=== PATIENT | male | born 1935 | race Hispanic/Latino ===

== ENCOUNTER 2016-06-10 13:32 | Emergency (ER) | payer MEDICARE ==
[2016-06-10 14:07] VITALS: BP 147/80; RESP 18; TEMP 97.2
--- NOTE | 2016-06-10 15:01 | ED PDOC ---
HPI: Back Time Seen by Provider: 06/10/16 14:53 Chief Complaint (Nursing): Back Pain Chief Complaint (Provider): Left-Sided Back Pain History Per: Patient History/Exam Limitations: no limitations Onset/Duration Of Symptoms: Days (x3) Current Symptoms Are (Timing): Still Present Quality Of Discomfort: Unable To Describe Severity: Moderate Previous Symptoms: None Associated Symptoms: None Additional Complaint(s): Domo Ba is an 80 year old male, with no pertinent pasta medical history, who presents to the ED on 06/10/16 for the evaluation of moderate, left -sided mid-thoracic back pain that he has experienced x3 days s/p mechanical fall. Patient states that he had been cleaning a banister when he had lost his balance and fallen backwards down a set of 2 steps, striking the affected area against a radiator. Denies head trauma or loss of consciousness as well as shortness of breath. Has medicated with Tylenol and Advil without relief, last dose of the latter being as of 3 hours prior to arrival. PMD: Berto Del Valle Past Medical History Reviewed: Historical Data, Nursing Documentation, Vital Signs Vital Signs: Last Vital Signs Temp 97.2 F L 06/10/16 14:04 Pulse 95 H 06/10/16 14:04 Resp 18 06/10/16 14:04 BP 147/80 06/10/16 14:04 Pulse Ox 99 06/10/16 14:04 - Medical History PMH: Asthma, HTN Denies: Chronic Kidney Disease - Surgical History Other surgeries: b/l TKR - Family History Family History: States: Unknown Family Hx - Home Medications Home Medications: Ambulatory Orders Medication Instructions Recorded Albuterol Sulfate [Proair Hfa] 2 puff IH Q4H PRN #0 inh 10/05/15 Calcium Carbonate/Vitamin D3 1 tab PO DAILY #0 tablet 10/05/15 [Calcium 600-Vit D3 200 Tablet] Esomeprazole Magnesium [Nexium] 40 mg PO DAILY #0 capsule. 10/05/15 Meclizine [Meclizine*] 25 mg PO TID #0 tab 10/05/15 [place]-3 Fatty Acids/Fish Oil [Fish 1 gm PO DAILY #0 capsule 10/05/15 Oil 1,000 mg Capsule] Ondansetron [Zofran Tab] 4 mg PO TID PRN #0 tab 10/05/15 Ropinirole HCl [Requip] 0.25 mg PO HS #0 tablet 10/05/15 Rosuvastatin Calcium [Crestor] 5 mg PO HS #0 tab 10/05/15 Theophylline [Sourav-24 Cap] 300 mg PO Q12H #0 c12 10/05/15 oxyCODONE/Acetaminophen [Percocet 1 ea PO Q6 PRN #8 tab 06/10/16 5/325 mg Tab] - Allergies Allergies/Adverse Reactions: Allergies Allergy/AdvReac Type Severity Reaction Status Date / Time No Known Allergies Allergy Verified 10/04/15 15:52 Review of Systems Respiratory: Negative for: Shortness of Breath Musculoskeletal: Positive for: Back Pain (left-sided, mid-thoracic back pain) Physical Exam - Reviewed Nursing Documentation Reviewed: Yes Vital Signs Reviewed: Yes - Physical Exam Appears: Positive for: Non-toxic, No Acute Distress Back: Positive for: Other (left-lower posterior chest wall tenderness). Negative for: L CVA Tenderness, R CVA Tenderness, Vertebral Tenderness Neurologic/Psych: Positive for: Alert, Oriented - ECG O2 Sat by Pulse Oximetry: 99 (RA) Pulse Ox Interpretation: Normal - Progress ED Course And Treament: cxr: ? rib fx No pneumothorax Seen by respiratory therapist for incentive spirometry. Medical Decision Making Medical Decision Makin:53 Initial Impression: rib pain/injury; will r/o fracture Patient has declined offered analgesics. Initial Plan: * XR Left Ribs and PA Chest Scribe Attestation: Documented by Adela Palafox, acting as a scribe for Bassem Daily PA-C. Provider Scribe Attestation: All medical record entries made by the Scribe were at my direction and personally dictated by me. I have reviewed the chart and agree that the record accurately reflects my personal performance of the history, physical exam, medical decision making, and the department course for this patient. I have also personally directed, reviewed, and agree with the discharge instructions and disposition. Disposition - Clinical Impression Clinical Impression: Rib fracture - Patient ED Disposition Is Patient to be Admitted: No - Disposition Disposition: Routine/Home Disposition Time: 15:25 Condition: FAIR Additional Instructions: F/U WITH DR. DEL VALLE IN 2 DAYS. Prescriptions: oxyCODONE/Acetaminophen [Percocet 5/325 mg Tab] 1 ea PO Q6 PRN #8 tab PRN Reason: Pain, Severe (8-10) Instructions: Rib Fracture (ED)
--- NOTE | 2016-06-10 15:45 | RAD ---
PROCEDURE: Radiographs of the Chest and Left Ribs. HISTORY: rib injury COMPARISON: 10/04/2015. TECHNIQUE: Frontal radiograph of the chest and multiple oblique radiographs of the left ribs were obtained. FINDINGS: LEFT RIBS: No fracture or focal lesion visualized. LUNGS: Clear. PLEURA: Minimal blunting of left costophrenic angle may reflect pleural effusion or chronic pleural thickening. No pneumothorax. CARDIOVASCULAR: Normal sized heart. No pulmonary vascular congestion. OTHER FINDINGS: None. IMPRESSION: No evidence of left rib fracture. Minimal blunting of left costophrenic angle. Possible chronic pleural thickening versus small pleural effusion.
[2016-06-10 16:08] VITALS: PULSE 67; O2SAT 97
== END 2016-06-10 16:01 | disposition home or self-care (01) ==
LOC: H.ER 13:32
DX: S29.9XXA Unspecified injury of thorax, initial encounter (principal); W19.XXXA Unspecified fall, initial encounter; Y92.89 Other specified places as the place of occurrence of the external cause; I10 Essential (primary) hypertension

== ENCOUNTER 2017-03-05 08:08 | Emergency (ER) | payer MEDICARE ==
[2017-03-05 08:12] VITALS: BMI 27.1
[2017-03-05 08:18] VITALS: BP 134/77; PULSE 63; RESP 17; TEMP 97; O2SAT 99
--- NOTE | 2017-03-05 08:48 | ED PDOC ---
Upper Extremity Pain/Injury Time Seen by Provider: 03/05/17 08:23 Chief Complaint (Nursing): Upper Extremity Problem/Injury Chief Complaint (Provider): Right Wrist Pain History Per: Patient History/Exam Limitations: no limitations Onset/Duration Of Symptoms: Days (x2) Current Symptoms Are (Timing): Still Present Additional Complaint(s): Domo Ba is an 81 year old male with a past medical history of Asthma and Diabetes presenting to the ED for an evaluation of right wrist pain occurring for 2 days prior to arrival. The patient states associated tingling to his 3rd, 4th, and 5th fingers on his right hand and limited ability to move his hand due to the pain. He reports taking Tylenol for the pain, without relief. He denies experiencing any injury, excessive typing, lifting anything heavy, numbness, weakness, leg pain, chest pain, shortness of breath, cough, headache, or dizziness. PMD: Berto Del Valle MD Past Medical History Reviewed: Historical Data, Nursing Documentation, Vital Signs Vital Signs: Last Vital Signs Temp 97 F L 03/05/17 08:13 Pulse 63 03/05/17 08:13 Resp 17 03/05/17 08:13 BP 134/77 03/05/17 08:13 Pulse Ox 99 03/05/17 08:13 - Medical History PMH: Asthma, HTN Denies: Chronic Kidney Disease - Surgical History Surgical History: No Surg Hx - Family History Family History: States: No Known Family Hx - Home Medications Home Medications: Ambulatory Orders Medication Instructions Recorded RX: Albuterol Sulfate [Proair Hfa] 2 puff IH Q4H PRN #0 inh 10/05/15 RX: Calcium Carbonate/Vitamin D3 1 tab PO DAILY #0 tablet 10/05/15 [Calcium 600-Vit D3 200 Tablet] RX: Esomeprazole Magnesium [Nexium] 40 mg PO DAILY #0 capsule. 10/05/15 RX: Meclizine [Meclizine*] 25 mg PO TID #0 tab 10/05/15 RX: [place]-3 Fatty Acids/Fish Oil 1 gm PO DAILY #0 capsule 10/05/15 [Fish Oil 1,000 mg Capsule] RX: Ondansetron [Zofran Tab] 4 mg PO TID PRN #0 tab 10/05/15 RX: Ropinirole HCl [Requip] 0.25 mg PO HS #0 tablet 10/05/15 RX: Rosuvastatin Calcium [Crestor] 5 mg PO HS #0 tab 10/05/15 RX: Theophylline [Sourav-24 Tab] 300 mg PO Q12H #0 c12 10/05/15 oxyCODONE/Acetaminophen [Percocet 1 ea PO Q6 PRN #8 tab 06/10/16 5/325 mg Tab] - Allergies Allergies/Adverse Reactions: Allergies Allergy/AdvReac Type Severity Reaction Status Date / Time No Known Allergies Allergy Verified 10/04/15 15:52 Review of Systems ROS Statement: Except As Marked, All Systems Reviewed And Found Negative Constitutional: Negative for: Other (no recent injury) Cardiovascular: Negative for: Chest Pain Respiratory: Negative for: Cough, Shortness of Breath Musculoskeletal: Positive for: Hand Pain (right wrist pain; limited ROM secondary to pain). Negative for: Leg Pain Neurological: Positive for: Other (tingling to 3rd, 4th, and 5th fingers). Negative for: Weakness, Numbness, Headache, Dizziness Physical Exam - Reviewed Nursing Documentation Reviewed: Yes Vital Signs Reviewed: Yes - Physical Exam Appears: Positive for: Non-toxic, No Acute Distress Head Exam: Positive for: ATRAUMATIC, NORMOCEPHALIC Skin: Positive for: Normal Color, Warm, Dry Eye Exam: Positive for: Normal appearance, EOMI ENT: Positive for: Normal ENT Inspection Neck: Positive for: Normal, Painless ROM, Supple Cardiovascular/Chest: Positive for: Regular Rate, Rhythm, Chest Non Tender. Negative for: Murmur Respiratory: Positive for: Normal Breath Sounds. Negative for: Respiratory Distress Pulses-Radial (L): 2+ (and 2+ ulnar aspect) Pulses-Radial (R): 2+ (and 2+ ulnar aspect) Gastrointestinal/Abdominal: Positive for: Normal Exam, Soft. Negative for: Tenderness Back: Positive for: Normal Inspection Extremity: Positive for: Tenderness (to right medial wrist). Negative for: Normal ROM (limited ROM to medial/lateral area of right wrist and fingers secondary to pain), Pedal Edema, Deformity, Swelling Neurologic/Psych: Positive for: Alert, Oriented (x3). Negative for: Motor/ Sensory Deficits - ECG O2 Sat by Pulse Oximetry: 99 (RA) Pulse Ox Interpretation: Normal - Radiology X-Ray: Interpreted by Me, Viewed By Me X-Ray Interpretation: No Acute Disease - Progress ED Course And Treament: 933: Stable. AAOx3. Pain controlled. FU with pcp. Medical Decision Making Medical Decision Making: Time: 08:23 Impression: Right Wrist Pain Plan: * Motrin Tab 600 mg PO * [RAD] Wrist, Right 3 Views * Reevaluation Scribe Attestation: Documented by Bronwyn Miller, acting as a scribe for Bj Buenrostro MD. Provider Scribe Attestation: All medical record entries made by the Scribe were at my direction and personally dictated by me. I have reviewed the chart and agree that the record accurately reflects my personal performance of the history, physical exam, medical decision making, and the department course for this patient. I have also personally directed, reviewed, and agree with the discharge instructions and disposition. Disposition - Clinical Impression Clinical Impression: Wrist pain - Patient ED Disposition Is Patient to be Admitted: No Counseled Patient/Family Regarding: Studies Performed, Diagnosis, Need For Followup - Disposition Referrals: [facility] [Outside] - 03/08/17 Disposition: Routine/Home Disposition Time: 09:35 Condition: STABLE Additional Instructions: Return if not better in 3 days. Instructions: Arthralgia (ED) Forms: [employer] (Telugu)
--- NOTE | 2017-03-05 11:08 | RAD ---
PROCEDURE: Right Wrist Radiographs. HISTORY: pain COMPARISON: None. FINDINGS: BONES: No acute fracture. Diffuse osteopenia. JOINTS: Osteoarthritic changes, incompletely visualize. There is evidence of chondrocalcinosis common normal variant SOFT TISSUES: Normal. OTHER FINDINGS: None. IMPRESSION: No acute findings related to/accounting for the clinical presentation. Additional benign and/or incidental findings described above. Concordant results with the preliminary interpretation rendered by the emergency department physician procedure.
== END 2017-03-05 09:54 | disposition home or self-care (01) ==
LOC: H.ER 08:08
DX: M25.531 Pain in right wrist (principal); I10 Essential (primary) hypertension; J45.909 Unspecified asthma, uncomplicated

== ENCOUNTER 2018-06-19 10:36 | Emergency (ER) | payer MEDICARE ==
[2018-06-19 10:40] VITALS: BMI 27.9
[2018-06-19 10:42] VITALS: RESP 18; O2SAT 99
[2018-06-19] MEDS ORDERED: Albuterol-Ipratrop 3 mg / 0.5 (3 ml) UD INH STA ×3 (10:51→13:04)
[2018-06-19] MEDS ORDERED: Albuterol-Ipratrop 3 mg / 0.5 (3 ml) UD ONE ×3 (10:59→13:12)
--- NOTE | 2018-06-19 11:18 | ED PDOC ---
HPI: Asthma Time Seen by Provider: 06/19/18 10:45 Chief Complaint (Nursing): Cough, Cold, Congestion Chief Complaint (Provider): shortness of breath, cough History Per: Patient, Family History/Exam Limitations: no limitations Onset/Duration Of Symptoms: Days (5), Gradual Associated Symptoms: Dyspnea, Cough, URI. denies: Sputum Production, Fever Precipitating Factors: URI Symptoms Severity: Moderate Additional Complaint(s): 82yo male presents w family notes ongoing and worsening cough with dyspnea for about 5 days, had CXR , does not know results yet, denies edema or syncope. Does not SOB worse with laying down. Denies fever but has mild weakness, sore throat and headache. Did receive flu shot this year. Past Medical History Reviewed: Historical Data, Nursing Documentation, Vital Signs Vital Signs: Last Vital Signs Temp 98.0 F 06/19/18 10:40 Pulse 91 H 06/19/18 10:40 Resp 18 06/19/18 10:40 BP 150/79 06/19/18 10:40 Pulse Ox 99 06/19/18 10:40 - Medical History PMH: Asthma, HTN Denies: Chronic Kidney Disease - Surgical History Other surgeries: knees - Family History Family History: States: Unknown Family Hx - Social History Current smoker - smoking cessation education provided: No - Home Medications Home Medications: Ambulatory Orders Medication Instructions Recorded Albuterol Sulfate [Proair Hfa] 2 puff IH Q4H PRN #0 inh 10/05/15 Calcium Carbonate/Vitamin D3 1 tab PO DAILY #0 tablet 10/05/15 [Calcium 600-Vit D3 200 Tablet] Esomeprazole Magnesium [Nexium] 40 mg PO DAILY #0 capsule. 10/05/15 Meclizine [Meclizine*] 25 mg PO TID #0 tab 10/05/15 [place]-3 Fatty Acids/Fish Oil [Fish 1 gm PO DAILY #0 capsule 10/05/15 Oil 1,000 mg Capsule] Ondansetron [Zofran Tab] 4 mg PO TID PRN #0 tab 10/05/15 Ropinirole HCl [Requip] 0.25 mg PO HS #0 tablet 10/05/15 Rosuvastatin Calcium [Crestor] 5 mg PO HS #0 tab 10/05/15 Theophylline [Sourav-24 Tab] 300 mg PO Q12H #0 c12 10/05/15 oxyCODONE/Acetaminophen [Percocet 1 ea PO Q6 PRN #8 tab 06/10/16 5/325 mg Tab] Albuterol 0.083% [Albuterol 0.083% 2.5 mg IH Q4 PRN #20 neb 06/19/18 Inhal Samra (2.5 mg/3 ml) UD] Prednisone 50 mg PO DAILY #4 tab 06/19/18 - Allergies Allergies/Adverse Reactions: Allergies Allergy/AdvReac Type Severity Reaction Status Date / Time No Known Allergies Allergy Verified 10/04/15 15:52 Review of Systems Constitutional: Positive for: Chills, Malaise. Negative for: Fever Cardiovascular: Positive for: Orthopnea. Negative for: Edema, Light Headedness Respiratory: Positive for: Cough, Shortness of Breath, SOB with Exertion, Wheezing Gastrointestinal: Negative for: Abdominal Pain Musculoskeletal: Negative for: Neck Pain, Back Pain Skin: Negative for: Rash, Lesions Neurological: Positive for: Headache. Negative for: Weakness, Numbness, Altered Mental Status Psych: Negative for: Suicidal ideation Physical Exam - Reviewed Nursing Documentation Reviewed: Yes Vital Signs Reviewed: Yes - Physical Exam Appears: Positive for: Well, Non-toxic, No Acute Distress Head Exam: Positive for: ATRAUMATIC, NORMAL INSPECTION, NORMOCEPHALIC Skin: Positive for: Normal Color, Warm, DRY Eye Exam: Positive for: EOMI, Normal appearance, PERRL ENT: Positive for: Normal ENT Inspection Neck: Positive for: Normal, Painless ROM Cardiovascular/Chest: Positive for: Regular Rate, Rhythm Respiratory: Positive for: Decreased Breath Sounds, Wheezing. Negative for: Respiratory Distress Gastrointestinal/Abdominal: Positive for: Soft Back: Positive for: Normal Inspection Extremity: Positive for: Normal ROM. Negative for: Deformity, Swelling Neurological/Psych: Positive for: Awake, Alert, Normal Tone - Laboratory Results Result Diagrams: 06/19/18 11:00 06/19/18 11:00 - ECG ECG: Positive for: Interpreted By Me ECG Rhythm: Positive for: Sinus Rhythm, Nonspecific Changes Rate: 91 O2 Sat by Pulse Oximetry: 99 Pulse Ox Interpretation: Normal Medical Decision Making Medical Decision Making: labs reviewed, normal WBC, unremarkable chem, normal BNP and trop CXR repeated and no change since prior exam duoneb x3 given and clinically much improved, wheeze resolved, patient ambulated well, tolerated full PO and wished to go home. D/w Dr Del Valle PMD, will add prednisone pulse dose, he requested theophyline level and followup early this week in office No tachycardia, no hypoxia, normal mentation and resp effort on discharge Disposition - Clinical Impression Clinical Impression: Asthma exacerbation - Patient ED Disposition Is Patient to be Admitted: No - Disposition Referrals: Berto Del Valle MD [Family Provider] - Disposition: Routine/Home Disposition Time: 14:10 Condition: STABLE Additional Instructions: Followup with Dr Del Valle tomorrow, return to ER for any worse or new symptoms. Take medications as directed. Prescriptions: Albuterol 0.083% [Albuterol 0.083% Inhal Samra (2.5 mg/3 ml) UD] 2.5 mg IH Q4 PRN #20 neb PRN Reason: Wheezing Prednisone 50 mg PO DAILY #4 tab Instructions: Asthma, Adult (DC), Medicines for Asthma
[2018-06-19 11:32] LABS: BASO % 0.4 % (0.0-2.0); EOS # 0.2 K/uL (0.0-0.7); LYMPH # 1.6 K/uL (1.0-4.3); LYMPH % 20.1 % (20.0-40.0); MEAN CORPUSCULAR HEMOGLOBIN 24.9 pg (27.0-31.0); MEAN CORPUSCULAR HGB CONC 31.9 g/dL (33.0-37.0); MEAN PLATELET VOLUME 8.4 fl (7.2-11.7); MONO # 0.9 K/uL (0.0-0.8); MONO % 10.7 % (0.0-10.0); NEUT # 5.4 K/uL (1.8-7.0); NEUT % 66.8 % (50.0-75.0); RBC 4.02 Mil/uL (4.40-5.90); RED CELL DISTRIBUTION WIDTH 16.4 % (11.5-14.5); WHITE BLOOD COUNT 8.1 K/uL (4.8-10.8)
[2018-06-19 11:47] LABS: BLOOD UREA NITROGEN 12 mg/dl (9-20); CALCIUM 9.5 mg/dL (8.4-10.2); GFR NON-AFRICAN AMERICAN > 60
[2018-06-19 12:00] LABS: B-TYPE NATRIURETIC PEPTIDE 200 pg/ml (0-900)
--- NOTE | 2018-06-19 14:24 | RAD ---
Date of service: 06/19/2018 HISTORY: persistent and worsening cough COMPARISON: Comparison chest 06/16/2018. TECHNIQUE: Chest PA and lateral views FINDINGS: LUNGS: Minor bibasilar atelectasis left greater than right. There is flattening of the hemidiaphragms and slight increase in in retrosternal airspace consistent with underlying COPD PLEURA: No significant pleural effusion identified. No pneumothorax apparent. CARDIOVASCULAR: Mild aortic atherosclerotic calcification present. Heart size is upper limits of normal/borderline enlarged no pulmonary vascular congestion. OSSEOUS STRUCTURES: Minor multilevel degenerative spondylosis of the thoracic spine. VISUALIZED UPPER ABDOMEN: Normal. OTHER FINDINGS: None. IMPRESSION: Minor bibasilar atelectasis left greater than right. There is flattening of the hemidiaphragms and slight increase in in retrosternal airspace consistent with underlying COPD
[2018-06-19 14:37] VITALS: BP 123/64; TEMP 97.9
[2018-06-19 15:20] VITALS: PULSE 91
--- NOTE | 2018-06-20 09:11 | CARD ---
APPROVED REPORT Date of service: 06/19/2018 EKG Measurement Heart [id number] <Conclusion> Normal sinus rhythm Nonspecific ST and T wave abnormality Abnormal ECG
== END 2018-06-19 14:10 | disposition home or self-care (01) ==
LOC: H.ER 10:36
DX: J45.901 Unspecified asthma with (acute) exacerbation (principal); I10 Essential (primary) hypertension; Z79.899 Other long term (current) drug therapy
CPT/HCPCS: 71046; 80048; 80198; 83880; 84484; 85025; 87804; 93005; 96374; 99283; J2930